=== PATIENT | male | born 1985 | race Caucasian/White ===

== ENCOUNTER 2016-11-26 14:12 | Emergency (ER) | payer OTHER ==
[~2016-11-26] VITALS: Ht 175.3 cm; Wt 99.8 kg
[2016-11-26] MEDS ORDERED: NOHOMEMEDICATIONS (14:23)
[2016-11-26 15:07] LABS: HEMATOCRIT 44.7 % (42.0-52.0); HEMOGLOBIN 15.5 gm/dL (14.0-18.0); MCH 30.8 pg (26.0-34.0); MCHC 34.6 % (28.0-37.0); MCV 88.9 fL (80.0-100.0); PLATELET COUNT 239 thou/uL (150-400); RBC 5.03 mil/uL (4.50-6.00); RDW 12.7 % (10.5-14.5); WBC 9.8 thou/uL (4.0-11.0)
[2016-11-26 15:09] LABS: MANUAL DIFF YES
[2016-11-26 15:10] LABS: CALCIUM 9.1 mg/dL (8.5-10.1); POTASSIUM 3.7 mmol/L (3.5-5.1)
[2016-11-26 15:17] LABS: ALBUMIN 4.1 g/dL (3.4-5.0); TOTAL BILIRUBIN 0.3 mg/dL (<0.1-1.0); TOTAL PROTEIN 7.8 g/dL (6.4-8.2)
[2016-11-26 15:24] LABS: ABSOLUTE NEUTROPHILS 8.4 thou/uL (1.4-8.2); TOTAL CELL COUNT 100
[2016-11-26] MEDS ORDERED: IBUPROFEN 600600 M1 PO (17:09)
[2016-11-26] MEDS ORDERED: FLONASE 0.05%50 MCG NASAL (17:09)
[2016-11-26] MEDS ORDERED: TESSALON PERLE100 MG PO (17:14)
[2016-11-26 17:18] VITALS: BP 118/70
== END 2016-11-26 17:18 | disposition home or self-care (01) ==
LOC: ER 14:12
PROVIDERS: Physician Assistant
DX: J06.9 Acute upper respiratory infection, unspecified (principal); E86.0 Dehydration; Z98.890 Other specified postprocedural states; F17.210 Nicotine dependence, cigarettes, uncomplicated